=== PATIENT | female | born 1985 | race African-American/Black ===

== ENCOUNTER 2016-03-22 11:02 | Emergency (ER) | payer MEDICAID ==
[~2016-03-22] VITALS: Ht 170.2 cm; Wt 61.2 kg
[2016-03-22 11:05] VITALS: BP 114/69
[2016-03-22 11:24] LABS: PREGNANCY TEST URINE QUAL NEGATIVE (NEGATIVE)
[2016-03-22 11:44] LABS: ADD UA MICROSCOPIC YES; KETONES,URINE NEGATIVE (NEGATIVE); LEUKOCYTE ESTERASE ,URINE TRACE (NEGATIVE)
[2016-03-22 11:45] LABS: ADD URINE CULTURE NO
== END 2016-03-22 12:12 | disposition home or self-care (01) ==
LOC: ER 11:10
DX: N39.0 Urinary tract infection, site not specified (principal)
CPT/HCPCS: 81001; 84703; 87086; 99284; A4606; Z7610; 81000-TC

== ENCOUNTER 2016-07-07 17:46 | Emergency (ER) | payer MEDICAID, OTHER ==
[~2016-07-07] VITALS: Ht 170.2 cm; Wt 63.5 kg
[2016-07-07 17:50] VITALS: BP 125/70
== END 2016-07-07 18:24 | disposition home or self-care (01) ==
LOC: ER 17:49
DX: S29.012A Strain of muscle and tendon of back wall of thorax, initial encounter (principal); X58.XXXA Exposure to other specified factors, initial encounter; Y92.89 Other specified places as the place of occurrence of the external cause; Y93.89 Activity, other specified; Y99.8 Other external cause status
CPT/HCPCS: 99283; A4606; Z7610

== ENCOUNTER 2016-08-22 23:50 | Emergency (ER) | payer OTHER ==
[~2016-08-22] VITALS: Ht 170.2 cm; Wt 61.2 kg
--- NOTE | 2016-08-23 00:40 | NUR ---
PT PRESENTED TO THE ER WITH A C/O LT FLANK PAIN THAT RADIATES TO THE ABD. PT IS ALSO C/O [place]. PT AMBULATED TO BED #21. URINES SAMPLE WAS OBTAINED.
[2016-08-23] MEDS ORDERED: IV NS 0.9% 500 ML IV ONE (00:48)
[2016-08-23] MEDS ORDERED: ONDANSETRON HCL/PF 4 MG/2 ML VIAL ONE (00:48)
[2016-08-23] MEDS ORDERED: IV SET PRIMARY 1 EA INFUS.SET MC ONE ×2 (00:48→01:00)
[2016-08-23] MEDS: ONDANSETRON HCL/PF 4 MG/2 ML VIAL IVP ONE (00:56)
[2016-08-23 00:57] LABS: BASOPHILS % (AUTO) 0.3 % (0.0-2.0); EOSINOPHILS # (AUTO) 0.1 /CMM (0.0-0.7); EOSINOPHILS % (AUTO) 1.4 % (0.0-6.0); HEMATOCRIT 37 % (33-45); HEMOGLOBIN 11.4 g/dL (11.5-14.8); LYMPHOCYTES # (AUTO) 2.1 /CMM (0.8-4.8); MEAN CORPUSCULAR HEMOGLOBIN 23 PG (26.0-33.0); MEAN CORPUSCULAR HGB CONC 31 g/dl (31.0-36.0); MEAN CORPUSCULAR VOLUME 75 fL (82-100); MONOCYTES # (AUTO) 0.6 /CMM (0.1-1.30); MONOCYTES % (AUTO) 7.2 % (2.0-12.0); NEUTROPHILS # (AUTO) 5.6 /CMM (1.8-8.9); NEUTROPHILS % (AUTO) 66.1 % (43.0-81.0); PLATELET COUNT (AUTO) 237 /CMM (150-450); RDW COEFFICIENT OF VARIATION 17.5 (11.5-15.0); RED BLOOD CELL COUNT(AUTO) 4.88 MIL/uL (4.0-5.2); WHITE BLOOD COUNT (AUTO) 8.4 K/uL (4.3-11.0)
[2016-08-23 00:57] LABS: APPEARANCE,URINE CLOUDY (CLEAR); BILIRUBIN,URINE NEGATIVE (NEGATIVE); BLOOD, URINE NEGATIVE Ery/uL (NEGATIVE); KETONES,URINE 3+ (NEGATIVE); LEUKOCYTE ESTERASE ,URINE 2+ (NEGATIVE); NITRITE, URINE NEGATIVE (NEGATIVE); PROTEIN,URINE NEGATIVE (NEGATIVE); UGLUCOSE NEGATIVE (NEGATIVE); UROBILINOGEN,URINE 0.2 EU/dL (0.2)
[2016-08-23 00:58] LABS: COLOR,URINE Light yellow (YELLOW)
[2016-08-23] MEDS ORDERED: MORPHINE SULFATE INJ 2 MG/ML DISP.SYRIN IV ONE (01:00)
[2016-08-23] MEDS ORDERED: CEFTRIAXONE 1GM BAG (ER ONLY) 50 ML IV ONE (01:00)
[2016-08-23] MEDS ORDERED: IV NS 0.9% 500 ML BAG IV ONE (01:00)
[2016-08-23] MEDS ORDERED: IBUPROFEN 400 MG TABLET ONE (01:01)
[2016-08-23 01:02] LABS: PREGNANCY TEST URINE QUAL NEGATIVE (NEGATIVE)
[2016-08-23 01:03] LABS: BACTERIA,URINE 1+ /HPF (None Seen); RBC,URINE 0-2 /HPF (0-2); SQUAMOUS EPITHELIAL CELL,UR Many /HPF (None Seen)
[2016-08-23 01:04] LABS: URINE AMORPHOUS URATE Moderate /HPF (None Seen)
[2016-08-23 01:05] LABS: CALCIUM, SERUM 8.8 mg/dL (8.5-10.1); CREATININE 0.8 mg/dL (0.6-1.3); POTASSIUM 3.9 mmol/L (3.5-5.1)
--- NOTE | 2016-08-23 01:08 | NUR ---
[place]
[2016-08-23 01:13] LABS: ALBUMIN 3.7 g/dL (3.4-5.0); BILIRUBIN,DIRECT 0.2 mg/dL (0.0-0.2); BILIRUBIN,TOTAL 0.7 mg/dL (0.2-1.0)
--- NOTE | 2016-08-23 01:23 | NUR ---
PT RETURNED FROM CT AND PLACED IN BED #8. PT WAS RECONNECTED TO IVF AND ROCEPHIN. PT APPEARS TO BE RESTING COMFORTABLY.
[2016-08-23] MEDS ORDERED: IBUPROFEN 400 MG TABLET PO ONE (01:30)
[2016-08-23] MEDS ORDERED: CEFTRIAXONE 1GM BAG (ER ONLY) 1 GM/50 ML PIGGYBACK IV ONE (01:30)
--- NOTE | 2016-08-23 02:15 | NUR ---
PT APPEARS TO BE RESTING COMFORTABLY WITH NO S/S OF PAIN OR DISTRESS.
--- NOTE | 2016-08-23 03:22 | NUR ---
PT APPEARS TO BE SLEEPING COMFORTABLY. RESP EVEN AND UNLABORED. NO S/S OF PAIN OR DISTRESS. WILL CONTINUE TO MONITOR THE PT.
--- NOTE | 2016-08-23 04:09 | NUR ---
Patient discharged to home in stable condition. Written and verbal after care instructions given. Patient verbalizes understanding of instruction AND RX. IV removed. Catheter intact and site benign. Pressure and 4x4 applied to site. No bleeding noted. PT AMBULATED OUT WITH A STEADY GAIT. VSS.
[2016-08-23 04:16] VITALS: BP 116/65
== END 2016-08-23 04:16 | disposition home or self-care (01) ==
LOC: ER 23:59
DX: N39.0 Urinary tract infection, site not specified (principal)
CPT/HCPCS: 36415; 80048-TC; 80076-TC; 81000-TC; 83690-TC; 84703-TC; 85025-TC; 87086-TC; A4606; J0696; J2405; J7040; Z7610

== ENCOUNTER 2016-11-03 02:21 | Emergency (ER) | payer OTHER ==
[~2016-11-03] VITALS: Ht 170.2 cm; Wt 65.8 kg
[2016-11-03 02:42] VITALS: BP 108/70
[2016-11-03 03:11] LABS: APPEARANCE,URINE SL CLOUDY (CLEAR); BILIRUBIN,URINE NEGATIVE (NEGATIVE); BLOOD, URINE NEGATIVE Ery/uL (NEGATIVE); COLOR,URINE YELLOW (YELLOW); KETONES,URINE 1+ (NEGATIVE); LEUKOCYTE ESTERASE ,URINE TRACE (NEGATIVE); NITRITE, URINE NEGATIVE (NEGATIVE); PROTEIN,URINE NEGATIVE (NEGATIVE); UGLUCOSE NEGATIVE (NEGATIVE); UROBILINOGEN,URINE 0.2 EU/dL (0.2)
[2016-11-03 03:27] LABS: BACTERIA,URINE Rare /HPF (None Seen); RBC,URINE NONE SEEN /HPF (0-2); SQUAMOUS EPITHELIAL CELL,UR Few /HPF (None Seen)
[2016-11-03 03:38] LABS: PREGNANCY TEST URINE QUAL NEGATIVE (NEGATIVE)
== END 2016-11-03 03:45 | disposition home or self-care (01) ==
LOC: ER 02:24
DX: N39.0 Urinary tract infection, site not specified (principal)
CPT/HCPCS: 81001; 84703; 99283; A4606; Z7610; 81000-TC

== ENCOUNTER 2016-11-30 12:22 | Emergency (ER) | payer OTHER ==
[~2016-11-30] VITALS: Ht 172.7 cm; Wt 63.5 kg
[2016-11-30 12:22] VITALS: BP 111/71
[2016-11-30 13:15] LABS: APPEARANCE,URINE CLEAR (CLEAR); BILIRUBIN,URINE NEGATIVE (NEGATIVE); BLOOD, URINE NEGATIVE Ery/uL (NEGATIVE); COLOR,URINE YELLOW (YELLOW); KETONES,URINE NEGATIVE (NEGATIVE); LEUKOCYTE ESTERASE ,URINE 1+ (NEGATIVE); NITRITE, URINE NEGATIVE (NEGATIVE); PROTEIN,URINE NEGATIVE (NEGATIVE); UGLUCOSE NEGATIVE (NEGATIVE); UROBILINOGEN,URINE 0.2 EU/dL (0.2)
[2016-11-30 13:19] LABS: BACTERIA,URINE Rare /HPF (None Seen); RBC,URINE NONE SEEN /HPF (0-2); SQUAMOUS EPITHELIAL CELL,UR Few /HPF (None Seen)
[2016-11-30 13:24] LABS: PREGNANCY TEST URINE QUAL NEGATIVE (NEGATIVE)
[2016-12-04 06:08] LABS: *NEISSERIA GONORRHOEAE NAA Negative (Negative); CHLAMYDIA TRACHOMATIS NAA Negative (Negative)
== END 2016-11-30 14:19 | disposition home or self-care (01) ==
LOC: ER 12:22
DX: N39.0 Urinary tract infection, site not specified (principal)
CPT/HCPCS: 81001; 84703; 86695; 86696; 87086; 87210; 87491; 87591; 99284; A4606; Z7610; 36415; 81000-TC

== ENCOUNTER 2017-06-15 19:18 | Emergency (ER) | payer OTHER ==
[~2017-06-15] VITALS: Ht 172.7 cm; Wt 61.2 kg
[2017-06-15 19:23] VITALS: BP 99/69
--- NOTE | 2017-06-15 19:23 | NUR ---
PT AMBULATORY TO ER BED 16. PT BIB SELF C/O UTI SYMPTOMS X 4DAYS, GROIN RASH X 2 DAYS. 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 VSS/RESP EVEN UNLABORED/NAD NOTED/SKIN WARM AND DRY/DENIES N-V-D/AFEBRILE/AOX4. AWAITING MD AG.
--- NOTE | 2017-06-15 19:40 | NUR ---
URINE SPECIMEN OBTAINED AND SENT TO THE LAB.
[2017-06-15 20:00] LABS: APPEARANCE,URINE Slightly Cloudy (CLEAR); BILIRUBIN,URINE Negative (NEGATIVE); BLOOD, URINE Negative Ery/uL (NEGATIVE); COLOR,URINE Yellow (YELLOW); KETONES,URINE Trace (NEGATIVE); LEUKOCYTE ESTERASE ,URINE Trace (NEGATIVE); NITRITE, URINE Negative (NEGATIVE); PH,URINE 5.5 (5.0-8.0); PROTEIN,URINE Trace mg/dl (NEGATIVE); UGLUCOSE Negative (NEGATIVE); UROBILINOGEN,URINE 0.2 EU/dL (0.2)
[2017-06-15 20:09] LABS: BACTERIA,URINE Rare /HPF (None Seen); RBC,URINE 0-2 /HPF (0-2); SQUAMOUS EPITHELIAL CELL,UR Few /HPF (None Seen); WBC,URINE 0-2 /HPF (0-3)
--- NOTE | 2017-06-15 20:39 | NUR ---
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
--- NOTE | 2017-06-15 21:05 | NUR ---
ASSISTED DAYCARE ASSISTANT AT BEDSIDE WITH PELVIC EXAM. CULTURES SENT TO LAB.
== END 2017-06-15 21:28 | disposition home or self-care (01) ==
LOC: ER 19:19
DX: B37.3 Candidiasis of vulva and vagina (principal); F12.90 Cannabis use, unspecified, uncomplicated; B02.9 Zoster without complications; Z11.3 Encounter for screening for infections with a predominantly sexual mode of transmission; F12.10 Cannabis abuse, uncomplicated; F17.200 Nicotine dependence, unspecified, uncomplicated
CPT/HCPCS: 81001; 84703; 99284; 99406; A4606; Z7610; 81000-TC

== ENCOUNTER 2017-08-26 22:05 | Emergency (ER) | payer OTHER ==
[~2017-08-26] VITALS: Ht 170.2 cm; Wt 63.5 kg
--- NOTE | 2017-08-26 23:00 | NUR ---
PT PRESENTED TO THE ER WITH A C/O N/D WITHOUT VOMITTING, BACK PAIN ,ABD PAIN, HEADAHCE/HEAD BURNING. PT AMBULATED TO ROOM #5 WITH A STEADY GAIT. URINE SAMPLE OBTAINED.
[2017-08-26] MEDS ORDERED: KETOROLAC TROMETHAMINE INJ 30 MG/ML VIAL IV ONE (23:30)
[2017-08-26] MEDS ORDERED: IV NS 0.9% 1,000 ML BAG IV ONE (23:30)
[2017-08-26] MEDS ORDERED: methylPREDNISolone SOD SUCC 125 MG/2ML VIAL IV ONE (23:30)
[2017-08-26] MEDS ORDERED: PROCHLORPERAZINE EDISYLATE 10 MG/2 ML VIAL IV ONE (23:30)
[2017-08-26] MEDS ORDERED: diphenhydrAMINE HCL 50 MG/ML VIAL IV ONE (23:30)
[2017-08-26] MEDS ORDERED: KETOROLAC TROMETHAMINE INJ 30 MG/ML VIAL ONE (23:47)
[2017-08-26] MEDS ORDERED: PROCHLORPERAZINE EDISYLATE 10 MG/2 ML VIAL ONE (23:47)
[2017-08-26] MEDS ORDERED: methylPREDNISolone SOD SUCC 125 MG/2ML VIAL ONE (23:47)
[2017-08-26] MEDS ORDERED: diphenhydrAMINE HCL 50 MG/ML VIAL ONE (23:47)
[2017-08-26 23:50] LABS: BASOPHILS % (AUTO) 0.6 % (0.0-2.0); EOSINOPHILS % (AUTO) 2.8 % (0.0-6.0); HEMATOCRIT 32 % (33-45); HEMOGLOBIN 9.8 g/dL (11.5-14.8); LYMPHOCYTES # (AUTO) 2.4 /CMM (0.8-4.8); LYMPHOCYTES % (AUTO) 34.4 % (20.0-44.0); MEAN CORPUSCULAR HGB CONC 31 g/dl (31.0-36.0); MEAN CORPUSCULAR VOLUME 75 fL (82-100); MONOCYTES # (AUTO) 0.7 /CMM (0.1-1.30); MONOCYTES % (AUTO) 10.3 % (2.0-12.0); NEUTROPHILS # (AUTO) 3.6 /CMM (1.8-8.9); NEUTROPHILS % (AUTO) 51.9 % (43.0-81.0); PLATELET COUNT (AUTO) 224 /CMM (150-450); RDW COEFFICIENT OF VARIATION 17.6 (11.5-15.0); RED BLOOD CELL COUNT(AUTO) 4.22 MIL/uL (4.0-5.2)
[2017-08-27] LABS: CALCIUM, SERUM 8.2 mg/dL (8.5-10.1); CREATININE 0.8 mg/dL (0.6-1.3); POTASSIUM 3.4 mmol/L (3.5-5.1)
[2017-08-27 00:06] LABS: ALBUMIN 3.3 g/dL (3.4-5.0); BILIRUBIN,DIRECT 0.1 mg/dL (0.0-0.2); BILIRUBIN,TOTAL 0.3 mg/dL (0.2-1.0); TOTAL PROTEIN, SERUM 7.3 g/dL (6.4-8.2)
--- NOTE | 2017-08-27 01:44 | NUR ---
IV removed. Catheter intact and site benign. Pressure and 4x4 applied to site. No bleeding noted.Patient discharged to home in stable condition. Written and verbal after care instructions given. Patient verbalizes understanding of instruction AND RX. PT WAS INSTRUCTED NOT TO DRIVE HOME. PT STATED THAT SHE WAS GOING TO CALL A FRIEND TO PICK HER UP. VSS. PT AMBULATED TO THE LOBBY WITH A STEADY GAIT.
[2017-08-27 01:47] VITALS: BP 113/79
== END 2017-08-27 01:40 | disposition home or self-care (01) ==
LOC: ER 22:07
DX: R51 Headache (principal); D64.9 Anemia, unspecified; Z87.440 Personal history of urinary (tract) infections
CPT/HCPCS: 36415; 80048; 80076; 84703; 85025; 96361; 96374; 96375; 99284; A4606; J0780; J1200; J1885; J2930; J7030; Z7610

== ENCOUNTER 2018-07-23 14:07 | Emergency (ER) | payer OTHER ==
[~2018-07-23] VITALS: Ht 170.2 cm; Wt 63.5 kg
[2018-07-23 14:29] VITALS: BP 104/71
[2018-07-23] MEDS ORDERED: ACETAMINOPHEN ES 500 MG TABLET PO ONE (15:00)
[2018-07-23] MEDS ORDERED: IBUPROFEN 600 MG TABLET PO ONE ×2 (15:00→15:09)
[2018-07-23] MEDS ORDERED: ACETAMINOPHEN ES 500 MG TABLET ONE (15:09)
== END 2018-07-23 15:10 | disposition home or self-care (01) ==
LOC: ER 14:07
DX: R09.82 Postnasal drip (principal); J30.89 Other allergic rhinitis

== ENCOUNTER 2018-11-24 00:16 | Emergency (ER) | payer OTHER ==
[~2018-11-24] VITALS: Ht 170.2 cm; Wt 60.3 kg
[2018-11-24 00:33] VITALS: BP 111/87
--- NOTE | 2018-11-24 01:38 | NUR ---
Patient discharged to home in stable condition. Rx and Written and verbal after care instructions given. Patient verbalizes understanding of instruction.
== END 2018-11-24 01:38 | disposition home or self-care (01) ==
LOC: ER 00:19
DX: J40 Bronchitis, not specified as acute or chronic (principal); Z87.440 Personal history of urinary (tract) infections

== ENCOUNTER 2019-04-26 23:37 | Emergency (ER) | payer OTHER ==
--- NOTE | 2019-04-26 23:37 | NUR ---
Joelle cordova in [facility] - 04/27/19 at 0001 by BEAR CALLED PT TO BE TRIAGED, NO ANSWER
--- NOTE | 2019-04-26 23:40 | NUR ---
CALLED PT TO BE TRIAGED, NO ANSWER
--- NOTE | 2019-04-26 23:59 | NUR ---
CALLED PATIENT TO BE TRIAGED, NO ANSWER
--- NOTE | 2019-04-27 00:02 | NUR ---
PT NOT IN WAITING ROOM
--- NOTE | 2019-04-27 00:20 | NUR ---
PT STILL NOT IN WAITING ROOM
--- NOTE | 2019-04-27 00:39 | NUR ---
PT STILL NOT IN WAITING ROOM
== END 2019-04-27 00:40 | disposition left against medical advice (07) ==
LOC: ER 23:38
DX: Z53.21 Procedure and treatment not carried out due to patient leaving prior to being seen by health care provider (principal)

== ENCOUNTER 2019-04-27 01:13 | Emergency (ER) | payer OTHER ==
[~2019-04-27] VITALS: Ht 172.7 cm; Wt 63.5 kg
[2019-04-27 01:15] VITALS: BP 104/60
[2019-04-27] MEDS ORDERED: ONDANSETRON 4 MG TAB.RAPDIS SL ONE (01:30)
[2019-04-27] MEDS ORDERED: ONDANSETRON 4 MG TAB.RAPDIS ONE (01:32)
--- NOTE | 2019-04-27 01:33 | NUR ---
XRAY AT BEDSIDE
--- NOTE | 2019-04-27 01:59 | NUR ---
Patient discharged to home in stable condition. Written and verbal after care instructions given. Patient verbalizes understanding of instruction. Pt ambulatory with a steady gait
== END 2019-04-27 02:01 | disposition home or self-care (01) ==
LOC: ER 01:13
DX: B34.9 Viral infection, unspecified (principal)
CPT/HCPCS: 71046; 99283; Q0162